=== PATIENT | male | born 1950 | race Caucasian/White ===

== ENCOUNTER 2019-08-09 10:54 | Emergency (ER) | payer MEDICARE ==
[~2019-08-09] VITALS: Ht 167.6 cm; Wt 79.5 kg
[~2019-08-09 10:54] MED LIST: AMOXICILLIN 50500 MG PO; NO HOME MEDICATIONS; PHENERGAN W/CO120 ML PO
[2019-08-09 10:58] VITALS: TEMP 99.1
[2019-08-09 11:49] LABS: BASO % 0.6 % (0.0-2.0); EOS % 0.6 % (0-4.0); GRAN # 2.7 (1.4-6.5); GRAN % 81.4 % (42.2-75.2); HEMATOCRIT 44.3 % (42.0-52.0); HEMOGLOBIN 14.5 g/dl (13.5-18.0); LYMPH # 0.5 (1.2-3.4); LYMPH % 15.9 % (20.0-51.0); MEAN CELL VOLUME 91 fl (80.0-100.0); MEAN CORPUSCULAR HEMOGLOBIN 30 pg (27.0-31.0); MEAN CORPUSCULAR HGB CONC 33 g/dl (33.0-37.0); MEAN PLATELET VOLUME 10.2 fl (7.4-10.4); MONO # 0.1 (0.1-0.6); MONO % 1.5 % (1.7-9.3); PLATELET COUNT 114 K/mm3 (130-400); RED BLOOD COUNT 4.87 M/mm3 (4.20-5.60); REDCELL DISTRIBUTION WIDTH-CV 13.7 % (11.5-14.5)
[2019-08-09 12:03] LABS: COLLECTION METHOD CLEAN CATCH
[2019-08-09] MEDS ORDERED: EFFEXOR 3737.5 MG/TA PO (12:04)
[2019-08-09] MEDS ORDERED: DUO-KAPS1 CAP PO (12:05)
[2019-08-09] MEDS ORDERED: WELLBUTRIN XL300 M1 PO (12:05)
[2019-08-09] MEDS ORDERED: KLONOPIN 0.5MG0.5 MG PO (12:05)
[2019-08-09] MEDS ORDERED: LIPITOR 80MG80 MG PO (12:06)
[2019-08-09] MEDS ORDERED: OMEGA MINT FISH1 SGL PO (12:06)
[2019-08-09] MEDS ORDERED: ASPIRIN E.C. 8181 MG PO (12:07)
[2019-08-09 12:11] LABS: ALBUMIN 4.7 gm/dL (3.5-5.0); BILIRUBIN,TOTAL 1.4 mg/dL (0.0-1.0); C-REACTIVE PROTEIN 2.4 mg/dL (0.0-0.9); CALCIUM 9.4 mg/dL (8.4-10.2); CREATININE, serum 1.03 (0.66-1.25); POTASSIUM 4.3 mmol/L (3.4-5.0); TOTAL PROTEIN 8.3 gm/dL (6.4-8.2)
[2019-08-09 12:28] LABS: MUCOUS Present /lpf; PH 5 (5-8); SQUAMOUS EPITHELIAL 0-2 /hpf; URINE APPEARANCE Hazy; URINE BACTERIA Rare /hpf; URINE BILIRUBIN Negative (NEGATIVE); URINE BLOOD Negative (NEGATIVE); URINE COLOR Yellow; URINE GLUCOSE Negative (NEGATIVE); URINE KETONE Negative (NEGATIVE); URINE LEUKOCYTE ESTERASE Negative (NEGATIVE); URINE NITRATE Negative (NEGATIVE); URINE PROTEIN(semi-quant) Negative (NEGATIVE); URINE UROBILINOGEN Negative (NEGATIVE)
[2019-08-09] MEDS ORDERED: LEVAQUIN 750MG750 M1 PO (14:27)
[2019-08-09] MEDS ORDERED: PERCOCET 325 MG1 TA2 PO (14:27)
[2019-08-09] MEDS ORDERED: ZOFRAN ODT4 MG PO (14:27)
[2019-08-09] MEDS ORDERED: FLAGYL500 MG PO (14:27)
[2019-08-09 15:00] VITALS: BP 128/64; PULSE 88
== END 2019-08-09 15:00 | disposition home or self-care (01) ==
LOC: COL.ER 10:54
PROVIDERS: Emergency Medicine
DX: K57.92 Diverticulitis of intestine, part unspecified, without perforation or abscess without bleeding (principal); Z79.82 Long term (current) use of aspirin
CPT/HCPCS: J1170; J7030; Q9967

== ENCOUNTER → 2024-04-10 | Outpatient (CLI) | payer MEDICARE ==
[~2024-04-10] MED LIST changes: +ASPIRIN E.C. 8181 MG PO; +Albuterol 0.083% Neb Soln 2.5 MG/3 ML UD IH ONE; +DUO-KAPS1 CAP PO; +EFFEXOR 3737.5 MG/TA PO; +FLAGYL500 MG PO; +KLONOPIN 0.5MG0.5 MG PO; +LEVAQUIN 750MG750 M1 PO; +LIPITOR 80MG80 MG PO; +OMEGA MINT FISH1 SGL PO; +PERCOCET 325 MG1 TA2 PO; +WELLBUTRIN XL300 M1 PO; +ZOFRAN ODT4 MG PO
== END ==
LOC: COL.PUL 08:33
DX: R91.8 Other nonspecific abnormal finding of lung field (principal); R93.89 Abnormal findings on diagnostic imaging of other specified body structures; R06.02 Shortness of breath